=== PATIENT | female | born 2000 | race Caucasian/White ===

== ENCOUNTER 2019-02-21 14:00 | Emergency (ER) | payer BC ==
[2019-02-21 14:11] VITALS: BP 103/67
--- NOTE | 2019-02-21 14:11 | UC ---
Throat Pain/Nasal Paul HPI - HPI Summary HPI Summary: 18 yo female presents with FB sensation in throat. She tells me that for the past week she has felt that there is something in her throat. She mentions that 1 week ago she had a "bad episode" of the hiccups and then went to bed. The next day noticed this sensation in her throat. Sensation is resolved by eating, drinking, and talking --- she feels it most at rest. She is eating, drinking, and tolerating po without difficulty. She has not taken anything OTC for her symptoms. She is leaving for [facility] in 6 days and is concerned that her symptoms will worsen while in [facility]. She denies recent illness, fever, chills, sinus symptoms, cough, SOB, chest pain, abdominal pain, n/v. - History of Current Complaint Chief Complaint: UCGeneralIllness Stated Complaint: SORE THROAT Time Seen by Provider: 02/21/19 14:11 Hx Obtained From: Patient Hx Last Menstrual Period: January 29 Onset/Duration: Sudden Onset Severity: Mild Pain Intensity: 3 Pain Scale Used: 0-10 Numeric - Allergies/Home Medications Allergies/Adverse Reactions: Allergies Allergy/AdvReac Type Severity Reaction Status Date / Time PIANIVAL, WHITE RICE Allergy Vomiting Uncoded 02/21/19 14:11 PMH/Surg Hx/FS Hx/Imm Hx - Additional Past Medical History Additional PMH: Ulcerative Colitis - Surgical History Surgical History: Yes Surgery Procedure, Year, and [facility] - Family History Known Family History: Positive: None - Social History Occupation: Student Lives: With Family Alcohol Use: Occasionally Substance Use Type: None Smoking Status (MU): Never Smoked Tobacco Review of Systems All Other Systems Reviewed And Are Negative: No Constitutional: Positive: Negative Skin: Positive: Negative Eyes: Positive: Negative ENT: Positive: Other - FB sensation throat Respiratory: Positive: Negative Cardiovascular: Positive: Negative Gastrointestinal: Positive: Negative Neurovascular: Positive: Negative Neurological: Positive: Negative Psychological: Positive: Negative Physical Exam - Summary Physical Exam Summary: GENERAL: NAD. WDWN. No pain distress. SKIN: No rashes, sores, lesions, or open wounds. HEENT: Head: AT/NC Eyes: EOM intact. Conjunctiva clear without inflammation or discharge. Ears: Hearing grossly normal. TMs intact, no bulging, erythema, or edema. Nose: Nasal mucosa pink and moist. NTTP maxillary and frontal sinus. Throat: Posterior oropharynx without exudates, erythema, or tonsillar enlargement. Uvula midline. NECK: Supple. Nontender. Right anterior 1.0cm lymph node. CHEST: CTAB. No accessory muscle use. Breathing comfortably and in no distress. CV: RRR. Pulses intact. Cap refill <2seconds NEURO: Alert. PSYCH: Age appropriate behavior. Triage Information Reviewed: Yes Vital Signs: Initial Vital Signs Temp 98.6 F 02/21/19 14:07 Pulse 78 02/21/19 14:07 Resp 18 02/21/19 14:07 BP 103/67 02/21/19 14:07 Pulse Ox 100 02/21/19 14:07 Vital Signs Reviewed: Yes Throat Pain/Nasal Course/Dx - Course Course Of Treatment: In the clinic she was given maalox and viscous lidocaine for her FB sensation. - - This did not change her sensation much at all. She does have a lymph node at the area of her FB sensation that could be the reasons for her discomfort. I offered soft tissue XR and labwork today to further eval, but pt and mother with her declined. Recommended that they monitor symptoms and be rechecked if symptoms worsen or change. - Differential Dx/Diagnosis Provider Diagnosis: Lymphadenopathy Discharge ED - Sign-Out/Discharge Documenting (check all that apply): Patient Departure All imaging exams completed and their final reports reviewed: No Studies - Discharge Plan Condition: Stable Disposition: HOME Patient Education Materials: Lymphadenopathy (ED), Foreign Body in Pharynx (ED) Referrals: Ivonne Lorenzana PA [Primary Care Provider] - Additional Instructions: Your exam was normal today, but there was a small lymph node around the area of your discomfort that could be the reason. Please monitor the area and if your symptoms worsen or if you develop new symptoms - be rechecked - Billing Disposition and Condition Condition: STABLE Disposition: Home
[2019-02-21] MEDS ORDERED: Lidocaine 2% VISCOUS* 15 ML UDC PO ONE (14:26)
[2019-02-21] MEDS ORDERED: Al Hydrox/Mg Hydrox/Simet LIQ* 30 ML UDC PO ONE (14:26)
== END 2019-02-21 14:56 | disposition home or self-care (01) ==
LOC: UCEAST 14:00
DX: R59.0 Localized enlarged lymph nodes (principal); J02.9 Acute pharyngitis, unspecified; Z91.018 Allergy to other foods
CPT/HCPCS: 99212; A9270-GY; G0463

== ENCOUNTER 2019-02-26 12:13 | Emergency (ER) | payer BC ==
[2019-02-26 12:19] VITALS: BP 103/72
--- NOTE | 2019-02-26 13:14 | ED ---
Throat Pain/Nasal Congestion - HPI Summary HPI Summary: 19 yo WF c/o right ear "fullness" x2-3 days associated with mild LN swelling that is resolving from a few days ago. Patient and her mom is also concerned about recurrent bilateral lumpy breast tissue on the lateral left upper quadrant of both breasts, for which she's had a mammogram for and showed dense breast tissue. Patient cannot tell whether it is related to her monthly menses but it does seem to appear and disappear throughout the month. Denies any axillary or groin lymph node tenderness or swelling. - History of Current Complaint Chief Complaint: UCEar Time Seen by Provider: 02/26/19 12:29 Hx Obtained From: Patient Onset/Duration: Lasting Days Severity: Mild - Epiglottits Risk Factors Epiglottis Risk Factors: Negative - Allergies/Home Medications Allergies/Adverse Reactions: Allergies Allergy/AdvReac Type Severity Reaction Status Date / Time SRINIVASAN WHITE RICE Allergy Vomiting Uncoded 02/26/19 12:20 PMH/Surg Hx/FS Hx/Imm Hx Previously Healthy: Yes Endocrine/Hematology History: Reports: Autoimmune Disease - Ulcerative Colitis GI History: Reports: Hx Jaundice - AT , Other GI Disorders - BLOOD IN STOOL FOR 2 MONTHS Sensory History: Reports: Hx Contacts or Glasses - INSTRUCTS GIVEN Denies: Hx Hearing Aid Opthamlomology History: Reports: Hx Contacts or Glasses - INSTRUCTS GIVEN Neurological History: Reports: Hx Headaches - A FEW TIMES PER WEEK- MOM STATES HEAT AND EXERCISE RELATED, Hx Migraine - A FEW IN THE PAST - Surgical History Surgery Procedure, Year, and Place: TUBES PLACED AT 17 MONTH[facility] Hx Anesthesia Reactions: No Infectious Disease History: No Infectious Disease History: Denies: Traveled Outside the [place] in Last 30 Days - Family History Known Family History: Positive: None, Non-Contributory - Social History Alcohol Use: Occasionally Substance Use Type: Reports: None Smoking Status (MU): Never Smoked Tobacco Review of Systems All Other Systems Reviewed And Are Negative: Yes Physical Exam - Summary Physical Exam Summary: Vital Signs Reviewed: Yes Eye Exam: Normal Eyes: Positive: Conjunctiva Clear ENT: Positive: Normal ENT inspection Neck: Positive: Supple, very shotty bilateral lymph nodes, not impressive for swelling or tenderness Breast-No prominent lymph nodes or heart lumps palpated Respiratory Exam: Normal Respiratory: Positive: Lungs clear, Normal breath sounds. Negative: Crackles, Rhonchi, Stridor, Wheezing Cardiovascular Exam: Normal Cardiovascular: Positive: RRR Abdomen: NT/ND Musculoskeletal Exam: Normal Neurological Exam: Normal Psychological Exam: Normal Skin Exam: Normal Vital Signs On Initial Exam: Initial Vitals Temp Pulse Resp BP Pulse Ox 36.6 C 68 16 103/72 100 02/26/19 12:17 02/26/19 12:17 02/26/19 12:17 02/26/19 12:17 02/26/19 12:17 Diagnostics - Vital Signs Vital Signs Temp Pulse Resp BP Pulse Ox 02/26/19 12:17 36.6 C 68 16 103/72 100 - Laboratory Lab Statement: Any lab studies that have been ordered have been reviewed, and results considered in the medical decision making process. EENT Course/Dx - Course Assessment/Plan: Left ear fullness - patient is traveling to [facility] tomorrow for studies. Patient's mother requests antibiotics just in case right ear fullness develop into pain and develops into an ear infection after flight. Diffuse subjective Shotty diffuse lymph nodes- will send out for CMV, [place]- [place] virus titers/panels, lyme panel. Advised to repeat breast mammogram if symptoms persist. - Diagnoses Provider Diagnoses: Sensation of fullness in right ear, Lymph node symptom Discharge ED - Sign-Out/Discharge Documenting (check all that apply): Patient Departure All imaging exams completed and their final reports reviewed: No Studies - Discharge Plan Condition: Stable Disposition: HOME Prescriptions: Amoxicillin PO (*) [Amoxicillin 500 MG CAP*] 500 mg PO Q12H 7 Days #14 cap Patient Education Materials: Ear Infection (ED) Referrals: Ivonne Lorenzana PA [Primary Care Provider] - - Billing Disposition and Condition Condition: STABLE Disposition: Home
[2019-02-28 14:09] LABS: Cytomegalovirus IgG Antibody Negative (Negative); EBV Capsid Ag IgG Ab Positive (Negative); EBV Capsid Ag IgM Ab Positive (Negative); Epstein-Barr Nuclear Antigen Positive (Negative)
--- NOTE | 2019-02-28 20:33 | UC ---
- Progress Note Progress Note: EBV results from February 26, 2019 come back with positive EBV IgG and IgM and nuclear antigen. These results suggest recovery are reactivation. Nursing to call patient inform them of the results that if they are recovering from mononucleosis type infection and this is a recovery however if she is having mononucleosis symptoms she most likely has a new mononucleosis diagnosis. Course/Dx - Diagnoses Provider Diagnoses: Sensation of fullness in right ear, Lymph node symptom Discharge ED - Sign-Out/Discharge Documenting (check all that apply): Patient Departure All imaging exams completed and their final reports reviewed: No Studies - Discharge Plan Condition: Stable Disposition: HOME Prescriptions: Amoxicillin PO (*) [Amoxicillin 500 MG CAP*] 500 mg PO Q12H 7 Days #14 cap Patient Education Materials: Ear Infection (ED) Referrals: Ivonne Lorenzana PA [Primary Care Provider] - - Billing Disposition and Condition Condition: STABLE Disposition: Home
== END 2019-02-26 13:35 | disposition home or self-care (01) ==
LOC: UCEAST 12:13
DX: H93.91 Unspecified disorder of right ear (principal); I89.8 Other specified noninfective disorders of lymphatic vessels and lymph nodes; Z91.018 Allergy to other foods
CPT/HCPCS: 36415; 86308; 86618; 86644; 86645; 86664; 86665; 87497; 99212; G0463